=== PATIENT | male | born 1955 | race African-American/Black ===

== ENCOUNTER 2020-08-01 15:22 | Inpatient (IN) | payer MEDICAID ==
[~2020-08-01] VITALS: Ht 182.9 cm; Wt 78.5 kg
[2020-08-01] MEDS ORDERED: ACETAMINOPHEN 325MG TABLET PO ONE (16:15)
[2020-08-01 16:31] LABS: BASOPHILS % 1.1 % (0.0-2.0); EOSINOPHILS % 0.2 % (0.0-5.0); HEMATOCRIT. 26.5 % (42.0-52.0); HEMOGLOBIN. 8.7 g/dL (14.0-18.0); LYMPHOCYTES % 10.9 % (20.0-50.0); MEAN CORPUSCULAR VOLUME 88.7 fL (80.0-94.0); MEAN PLATELET VOLUME 7.9 fl (7.4-10.4); MONOCYTES % 9.4 % (2.0-8.0); NEUTROPHILS % 78.4 % (40.0-76.0); PLATELET 537 x1000/uL (130-400); RED BLOOD CELL COUNT 2.99 mill/uL (4.7-6.1); RED CELL DISTRIBUTION WIDTH 18.5 % (11.6-14.6)
[2020-08-01 16:38] LABS: CHLORIDE 99 mEq/L (98-107)
[2020-08-01] MEDS ORDERED: INSULIN REGULAR (HUMULIN R) 300UNITS/3ML VIAL SUBCUT ONE (17:15)
[2020-08-01] MEDS ORDERED: GUAIFENESIN 200MG/10ML SUGAR FREE UDC PO PRN (20:00)
[2020-08-01] MEDS ORDERED: DEXTROSE 50% WATER 50ML SYRINGE IV PRN (20:00)
[2020-08-01] MEDS ORDERED: ONDANSETRON HCL 4MG/2ML INJ IV PRN (20:00)
[2020-08-01] MEDS ORDERED: DOCUSATE SODIUM 100MG CAPSULE PO PRN (20:00)
[2020-08-01] MEDS ORDERED: DIPHENHYDRAMINE 50MG/ML VIAL IV PRN (20:00)
[2020-08-01] MEDS ORDERED: MAGNESIUM/ALUMINUM HYDROXIDE/SIMETHICONE 30ML UDC PO PRN (20:00)
[2020-08-01] MEDS ORDERED: IPRATROPIUM/ALBUTEROL 0.5-3(2.5)MG/3ML NEB NEB PRN (20:00)
[2020-08-01] MEDS ORDERED: NITROGLYCERIN 0.4MG TABLET SL SL PRN (20:00)
[2020-08-01] MEDS ORDERED: ACETAMINOPHEN 325MG TABLET PO PRN ×2 (20:00)
[2020-08-01 20:57] LABS: VITAMIN B12 SERUM 1261 pg/mL (211-911)
[2020-08-01 20:58] LABS: FOLIC ACID (FOLATE) SERUM > 20.00 ng/mL (>5.38)
[2020-08-01] MEDS: BLOOD SUGAR DIAGNOSTIC STRIP TEST SCH (21:00)
[2020-08-01] MEDS ORDERED: AZITHROMYCIN 500 MG in DEXT 5% WATER 250 ML IV SCH (21:00)
[2020-08-01] MEDS ORDERED: ZOLPIDEM TARTRATE 5MG TABLET PO PRN (21:00)
[2020-08-01] MEDS ORDERED: CEFTRIAXONE 1 G PREMIX 50 ML IV SCH (21:00)
[2020-08-01] MEDS: FAMOTIDINE 20MG TABLET PO SCH (21:59)
[2020-08-01] MEDS: INSULIN LISPRO 100 UNITS/ML SUBCUT SCH (21:59)
[2020-08-01] MEDS: ENOXAPARIN 30MG/0.3ML SYR SUBCUT SCH (21:59)
[2020-08-01] MEDS: GUAIFENESIN/DM 600MG/30MG ER TAB 12HR PO SCH (21:59)
[2020-08-01] MEDS: ASCORBIC ACID 500 MG TABLET PO SCH (21:59)
[2020-08-01] MEDS ORDERED: INSULIN GLARGINE UD 100 UNITS/ML SYR SUBCUT SCH (22:00)
[2020-08-01 23:17] LABS: CREATINE KINASE 46 IU/L (39-308)
[2020-08-01 23:18] LABS: CREATINE KINASE MB FRACTION 2.5 ng/mL (0.5-3.6)
[2020-08-02 03:30] VITALS: BP 143/74
[2020-08-02 05:07] VITALS: BP 100/99
[2020-08-02] MEDS: BLOOD SUGAR DIAGNOSTIC STRIP TEST SCH ×4 (07:17→21:00)
[2020-08-02 08:00] VITALS: BP 179/93
[2020-08-02] MEDS: INSULIN LISPRO 100 UNITS/ML SUBCUT SCH ×4 (08:10→22:21)
[2020-08-02 09:56] LABS: CHLORIDE 105 mEq/L (98-107)
[2020-08-02 10:03] LABS: PHOSPHORUS 3.5 mg/dL (2.5-4.9)
[2020-08-02 10:05] LABS: CREATINE KINASE 36 IU/L (39-308); CREATINE KINASE MB FRACTION 1.9 ng/mL (0.5-3.6)
[2020-08-02] MEDS: ASCORBIC ACID 500 MG TABLET PO SCH ×3 (10:13→22:20)
[2020-08-02] MEDS: ZINC SULFATE 220 MG ( 50 ) CAPSULE PO SCH (10:13)
[2020-08-02] MEDS: GUAIFENESIN/DM 600MG/30MG ER TAB 12HR PO SCH ×3 (10:13→22:20)
[2020-08-02 11:42] LABS: BASOPHILS % 1.7 % (0.0-2.0); EOSINOPHILS % 0.4 % (0.0-5.0); HEMATOCRIT. 25.2 % (42.0-52.0); HEMOGLOBIN. 8.6 g/dL (14.0-18.0); LYMPHOCYTES % 16.7 % (20.0-50.0); MEAN CORPUSCULAR HEMOGLOBIN 29.6 pg (28.0-32.0); MEAN PLATELET VOLUME 8.2 fl (7.4-10.4); MONOCYTES % 7.4 % (2.0-8.0); NEUTROPHILS % 73.8 % (40.0-76.0); PLATELET 507 x1000/uL (130-400); RED CELL DISTRIBUTION WIDTH 18.6 % (11.6-14.6)
[2020-08-02 12:00] VITALS: BP 128/75
[2020-08-02 15:50] LABS: CLARITY URINE CLEAR (CLEAR); COLOR URINE YELLOW (YELLOW); KETONES URINE NEGATIVE (NEGATIVE); LEUKOCYTE ESTERASE URINE NEGATIVE (NEGATIVE); NITRITE URINE NEGATIVE (NEGATIVE); OCCULT BLOOD URINE 2+ (NEGATIVE); PROTEIN URINE 3+ (NEGATIVE); SPECIFIC GRAVITY URINE 1.015 (1.005-1.030); UROBILINOGEN URINE 0.2 E.U./dL (0.2-1.0)
[2020-08-02] MEDS ORDERED: INFLUENZA VACCINE 05/PF 0.5 ML VIAL IM ONE (16:15)
[2020-08-02] MEDS ORDERED: PNEUMOCOCCAL 23-VAL P-SAC VAC 0.5 ML IM ONE (16:30)
[2020-08-02] MEDS: CHOLECALCIFEROL (D3) 1000 UNIT TABLET PO SCH (18:03)
[2020-08-02] MEDS: SEVELAMER CARBONATE 800 MG TABLET PO SCH ×2 (18:03→18:06)
[2020-08-02 19:37] LABS: *AMPHETAMINES SCREEN URINE NEGATIVE (NEGATIVE); *BARBITURATES SCREEN URINE NEGATIVE (NEGATIVE); *BENZODIAZEPINES SCREEN URINE NEGATIVE (NEGATIVE); *COCAINE SCREEN URINE NEGATIVE (NEGATIVE); METHADONE URINE SCREEN NEGATIVE (NEGATIVE); OPIATES URINE SCREEN NEGATIVE (NEGATIVE); PHENCYCLIDINE URINE SCREEN NEGATIVE (NEGATIVE)
[2020-08-02 19:38] LABS: CANNABINOID URINE SCREEN NEGATIVE (NEGATIVE)
[2020-08-02 20:00] VITALS: BP 150/76
[2020-08-02] MEDS: CEFTRIAXONE 1,000 MG in DEXTROSE 5% WATER 50 ML IV SCH (20:07)
[2020-08-02] MEDS: AZITHROMYCIN 500 MG in DEXT 5% WATER 250 ML IV SCH (21:27)
[2020-08-02] MEDS: FAMOTIDINE 20MG TABLET PO SCH ×2 (21:27→22:19)
[2020-08-02] MEDS: ENOXAPARIN 30MG/0.3ML SYR SUBCUT SCH (22:19)
[2020-08-02] MEDS: EPOETIN ALFA 10000UNITS/ML VIAL SUBCUT SCH (22:20)
[2020-08-02] MEDS: INSULIN GLARGINE UD 100 UNITS/ML SYR SUBCUT SCH (22:22)
[2020-08-03] VITALS: BP 131/62
[2020-08-03 04:00] VITALS: BP 172/83
[2020-08-03] MEDS: CLONIDINE 0.1MG TABLET PO PRN (04:35)
[2020-08-03] MEDS: BLOOD SUGAR DIAGNOSTIC STRIP TEST SCH ×4 (06:36→21:53)
[2020-08-03 06:59] LABS: BASOPHILS % 1.2 % (0.0-2.0); EOSINOPHILS % 0.7 % (0.0-5.0); HEMATOCRIT. 27.2 % (42.0-52.0); LYMPHOCYTES % 13.7 % (20.0-50.0); MEAN CORPUSCULAR HEMOGLOBIN 29.6 pg (28.0-32.0); MEAN CORPUSCULAR VOLUME 89.3 fL (80.0-94.0); MEAN PLATELET VOLUME 7.8 fl (7.4-10.4); MONOCYTES % 9.5 % (2.0-8.0); NEUTROPHILS % 74.9 % (40.0-76.0); PLATELET 539 x1000/uL (130-400); RED BLOOD CELL COUNT 3.05 mill/uL (4.7-6.1); RED CELL DISTRIBUTION WIDTH 19.1 % (11.6-14.6)
[2020-08-03 07:32] LABS: HEPATITIS B SURFACE AB < 3.1 mIU/mL
[2020-08-03 07:34] LABS: PHOSPHORUS 3.5 mg/dL (2.5-4.9)
[2020-08-03 07:42] LABS: HEPATITIS B SURFACE ANTIGEN NEGATIVE
[2020-08-03] MEDS: INSULIN LISPRO 100 UNITS/ML SUBCUT SCH ×4 (07:51→21:52)
[2020-08-03] MEDS: SEVELAMER CARBONATE 800 MG TABLET PO SCH ×3 (08:53→18:04)
[2020-08-03] MEDS: CHOLECALCIFEROL (D3) 1000 UNIT TABLET PO SCH (08:53)
[2020-08-03] MEDS: ZINC SULFATE 220 MG ( 50 ) CAPSULE PO SCH (08:54)
[2020-08-03 12:00] VITALS: BP 159/81
[2020-08-03] MEDS: MAGNESIUM OXIDE 400MG TABLET PO SCH ×2 (13:40→21:51)
[2020-08-03 20:00] VITALS: BP 157/92
[2020-08-03] MEDS: CEFTRIAXONE 1,000 MG in DEXTROSE 5% WATER 50 ML IV SCH (20:03)
[2020-08-03] MEDS: AZITHROMYCIN 500 MG in DEXT 5% WATER 250 ML IV SCH (21:49)
[2020-08-03] MEDS: ASCORBIC ACID 500 MG TABLET PO SCH (21:50)
[2020-08-03] MEDS: ENOXAPARIN 30MG/0.3ML SYR SUBCUT SCH (21:50)
[2020-08-03] MEDS: GUAIFENESIN/DM 600MG/30MG ER TAB 12HR PO SCH (21:51)
[2020-08-03] MEDS: INSULIN GLARGINE UD 100 UNITS/ML SYR SUBCUT SCH (21:53)
[2020-08-04] VITALS: BP 140/84
[2020-08-04 04:00] VITALS: BP 134/77
[2020-08-04] MEDS: BLOOD SUGAR DIAGNOSTIC STRIP TEST SCH ×4 (06:23→21:00)
[2020-08-04 06:51] LABS: BASOPHILS % 1.2 % (0.0-2.0); EOSINOPHILS % 0.3 % (0.0-5.0); HEMATOCRIT. 28.1 % (42.0-52.0); HEMOGLOBIN. 9.6 g/dL (14.0-18.0); LYMPHOCYTES % 17.4 % (20.0-50.0); MEAN CORPUSCULAR HEMOGLOBIN 29.6 pg (28.0-32.0); MEAN CORPUSCULAR VOLUME 86.7 fL (80.0-94.0); MEAN PLATELET VOLUME 7.9 fl (7.4-10.4); MONOCYTES % 9.9 % (2.0-8.0); NEUTROPHILS % 71.2 % (40.0-76.0); PLATELET 479 x1000/uL (130-400); RED BLOOD CELL COUNT 3.24 mill/uL (4.7-6.1); RED CELL DISTRIBUTION WIDTH 18.2 % (11.6-14.6)
[2020-08-04] MEDS: INSULIN LISPRO 100 UNITS/ML SUBCUT SCH ×4 (07:42→21:48)
[2020-08-04 08:00] VITALS: BP_SYST 143; BP_SYST 158; BP_DIAS 65; BP_DIAS 83
[2020-08-04] MEDS: SEVELAMER CARBONATE 800 MG TABLET PO SCH ×3 (09:31→18:04)
[2020-08-04] MEDS: MAGNESIUM OXIDE 400MG TABLET PO SCH ×2 (09:31→21:43)
[2020-08-04] MEDS: ZINC SULFATE 220 MG ( 50 ) CAPSULE PO SCH (09:31)
[2020-08-04] MEDS: GUAIFENESIN/DM 600MG/30MG ER TAB 12HR PO SCH ×2 (09:31→21:43)
[2020-08-04] MEDS: CHOLECALCIFEROL (D3) 1000 UNIT TABLET PO SCH (09:31)
[2020-08-04] MEDS: ASCORBIC ACID 500 MG TABLET PO SCH ×2 (09:31→21:43)
[2020-08-04 12:00] VITALS: BP 145/82
[2020-08-04 16:00] VITALS: BP 156/82
[2020-08-04 18:26] LABS: PHOSPHORUS 3.1 mg/dL (2.5-4.9)
[2020-08-04 20:00] VITALS: BP 171/77
[2020-08-04] MEDS: FAMOTIDINE 20MG TABLET PO SCH (21:43)
[2020-08-04] MEDS: ENOXAPARIN 30MG/0.3ML SYR SUBCUT SCH (21:45)
[2020-08-04] MEDS: INSULIN GLARGINE UD 100 UNITS/ML SYR SUBCUT SCH (21:46)
[2020-08-04] MEDS: EPOETIN ALFA 10000UNITS/ML VIAL SUBCUT SCH (21:47)
[2020-08-04] MEDS: CEFTRIAXONE 1,000 MG in DEXTROSE 5% WATER 50 ML IV SCH (21:51)
[2020-08-04] MEDS: AZITHROMYCIN 500 MG in DEXT 5% WATER 250 ML IV SCH (22:48)
[2020-08-05] VITALS: BP 154/83
[2020-08-05 04:00] VITALS: BP 154/82
[2020-08-05] MEDS: BLOOD SUGAR DIAGNOSTIC STRIP TEST SCH ×4 (06:19→21:00)
[2020-08-05] MEDS: INSULIN LISPRO 100 UNITS/ML SUBCUT SCH ×4 (06:23→21:13)
[2020-08-05 08:00] VITALS: BP 157/79
[2020-08-05 08:10] LABS: BASOPHILS % 1.1 % (0.0-2.0); EOSINOPHILS % 0.5 % (0.0-5.0); HEMATOCRIT. 28.4 % (42.0-52.0); HEMOGLOBIN. 9.5 g/dL (14.0-18.0); LYMPHOCYTES % 20.5 % (20.0-50.0); MEAN CORPUSCULAR HEMOGLOBIN 28.9 pg (28.0-32.0); MEAN CORPUSCULAR VOLUME 86.6 fL (80.0-94.0); MEAN PLATELET VOLUME 8.3 fl (7.4-10.4); MONOCYTES % 10.7 % (2.0-8.0); NEUTROPHILS % 67.2 % (40.0-76.0); PLATELET 458 x1000/uL (130-400); RED BLOOD CELL COUNT 3.28 mill/uL (4.7-6.1); RED CELL DISTRIBUTION WIDTH 18.1 % (11.6-14.6)
[2020-08-05] MEDS: MAGNESIUM OXIDE 400MG TABLET PO SCH ×2 (08:30→21:23)
[2020-08-05] MEDS: SEVELAMER CARBONATE 800 MG TABLET PO SCH ×3 (08:30→17:24)
[2020-08-05] MEDS: ASCORBIC ACID 500 MG TABLET PO SCH ×2 (08:30→21:10)
[2020-08-05] MEDS: GUAIFENESIN/DM 600MG/30MG ER TAB 12HR PO SCH ×2 (08:30→21:10)
[2020-08-05] MEDS: ZINC SULFATE 220 MG ( 50 ) CAPSULE PO SCH (08:30)
[2020-08-05] MEDS: CHOLECALCIFEROL (D3) 1000 UNIT TABLET PO SCH (08:30)
[2020-08-05 09:17] LABS: PHOSPHORUS 3.4 mg/dL (2.5-4.9)
[2020-08-05 12:00] VITALS: BP 150/84
[2020-08-05 16:00] VITALS: BP 139/79
[2020-08-05] MEDS ORDERED: TUBERCULIN,PURIF.PROT.DERIV. 5 TU/0.1 ML SYR ID ONE (18:00)
[2020-08-05 20:00] VITALS: BP 155/78
[2020-08-05] MEDS: FAMOTIDINE 20MG TABLET PO SCH (21:10)
[2020-08-05] MEDS: INSULIN GLARGINE UD 100 UNITS/ML SYR SUBCUT SCH (21:14)
[2020-08-05] MEDS: CEFTRIAXONE 1,000 MG in DEXTROSE 5% WATER 50 ML IV SCH (21:16)
[2020-08-05] MEDS: AZITHROMYCIN 500 MG in DEXT 5% WATER 250 ML IV SCH (22:31)
[2020-08-05] MEDS: ENOXAPARIN 30MG/0.3ML SYR SUBCUT SCH (22:49)
[2020-08-06] VITALS: BP 147/76
[2020-08-06 04:00] VITALS: BP 140/79
[2020-08-06] MEDS: BLOOD SUGAR DIAGNOSTIC STRIP TEST SCH ×4 (06:45→21:00)
[2020-08-06] MEDS: INSULIN LISPRO 100 UNITS/ML SUBCUT SCH ×4 (07:15→22:05)
[2020-08-06 08:00] VITALS: BP 142/82
[2020-08-06 08:33] LABS: EOSINOPHILS % 0.7 % (0.0-5.0); HEMATOCRIT. 30.5 % (42.0-52.0); HEMOGLOBIN. 10.3 g/dL (14.0-18.0); LYMPHOCYTES % 16.6 % (20.0-50.0); MEAN CORPUSCULAR HEMOGLOBIN 29.1 pg (28.0-32.0); MEAN CORPUSCULAR VOLUME 86.5 fL (80.0-94.0); MEAN PLATELET VOLUME 8.2 fl (7.4-10.4); MONOCYTES % 10.1 % (2.0-8.0); NEUTROPHILS % 71.6 % (40.0-76.0); PLATELET 432 x1000/uL (130-400); RED BLOOD CELL COUNT 3.53 mill/uL (4.7-6.1); RED CELL DISTRIBUTION WIDTH 17.7 % (11.6-14.6)
[2020-08-06 08:58] LABS: PHOSPHORUS 2.5 mg/dL (2.5-4.9)
[2020-08-06] MEDS: SEVELAMER CARBONATE 800 MG TABLET PO SCH ×3 (10:03→18:28)
[2020-08-06] MEDS: ASCORBIC ACID 500 MG TABLET PO SCH ×2 (10:03→21:19)
[2020-08-06] MEDS: MAGNESIUM OXIDE 400MG TABLET PO SCH ×2 (10:03→21:19)
[2020-08-06] MEDS: CHOLECALCIFEROL (D3) 1000 UNIT TABLET PO SCH (10:03)
[2020-08-06] MEDS: ZINC SULFATE 220 MG ( 50 ) CAPSULE PO SCH (10:03)
[2020-08-06] MEDS: GUAIFENESIN/DM 600MG/30MG ER TAB 12HR PO SCH ×2 (10:03→21:21)
[2020-08-06 20:00] VITALS: BP 154/87
[2020-08-06] MEDS: FAMOTIDINE 20MG TABLET PO SCH (21:19)
[2020-08-06] MEDS: INSULIN GLARGINE UD 100 UNITS/ML SYR SUBCUT SCH (22:05)
[2020-08-07] VITALS: BP 139/76
[2020-08-07 04:00] VITALS: BP 136/78
[2020-08-07] MEDS: BLOOD SUGAR DIAGNOSTIC STRIP TEST SCH ×4 (06:21→20:31)
[2020-08-07] MEDS: INSULIN LISPRO 100 UNITS/ML SUBCUT SCH ×4 (06:21→20:28)
[2020-08-07] MEDS: SEVELAMER CARBONATE 800 MG TABLET PO SCH ×3 (06:31→16:46)
[2020-08-07 07:21] LABS: BASOPHILS % 1.2 % (0.0-2.0); EOSINOPHILS % 0.4 % (0.0-5.0); HEMATOCRIT. 28.7 % (42.0-52.0); HEMOGLOBIN. 9.6 g/dL (14.0-18.0); MEAN CORPUSCULAR HEMOGLOBIN 28.8 pg (28.0-32.0); MEAN CORPUSCULAR VOLUME 86.5 fL (80.0-94.0); MEAN PLATELET VOLUME 8.2 fl (7.4-10.4); MONOCYTES % 8.4 % (2.0-8.0); PLATELET 436 x1000/uL (130-400); RED BLOOD CELL COUNT 3.32 mill/uL (4.7-6.1); RED CELL DISTRIBUTION WIDTH 17.6 % (11.6-14.6)
[2020-08-07 07:31] LABS: PHOSPHORUS 3.2 mg/dL (2.5-4.9)
[2020-08-07 08:00] VITALS: BP 169/82
[2020-08-07] MEDS: ZINC SULFATE 220 MG ( 50 ) CAPSULE PO SCH (08:06)
[2020-08-07] MEDS: CHOLECALCIFEROL (D3) 1000 UNIT TABLET PO SCH (08:06)
[2020-08-07] MEDS: ASCORBIC ACID 500 MG TABLET PO SCH ×2 (08:06→20:26)
[2020-08-07] MEDS: MAGNESIUM OXIDE 400MG TABLET PO SCH ×2 (08:06→20:26)
[2020-08-07] MEDS: GUAIFENESIN/DM 600MG/30MG ER TAB 12HR PO SCH ×2 (08:08→20:31)
[2020-08-07 12:00] VITALS: BP 174/85
[2020-08-07] MEDS: CLONIDINE 0.1MG TABLET PO PRN (12:33)
[2020-08-07 16:00] VITALS: BP 170/80
[2020-08-07] MEDS: AMLODIPINE 10MG TABLET PO SCH (16:46)
[2020-08-07] MEDS: FAMOTIDINE 20MG TABLET PO SCH (20:26)
[2020-08-07] MEDS: ENOXAPARIN 30MG/0.3ML SYR SUBCUT SCH (22:52)
[2020-08-07] MEDS: INSULIN GLARGINE UD 100 UNITS/ML SYR SUBCUT SCH (22:53)
[2020-08-08] VITALS: BP 160/76
[2020-08-08 04:00] VITALS: BP 137/79
[2020-08-08] MEDS: BLOOD SUGAR DIAGNOSTIC STRIP TEST SCH ×4 (05:47→21:00)
[2020-08-08] MEDS: SEVELAMER CARBONATE 800 MG TABLET PO SCH ×3 (05:47→17:47)
[2020-08-08] MEDS: INSULIN LISPRO 100 UNITS/ML SUBCUT SCH ×4 (06:46→21:06)
[2020-08-08 07:53] LABS: EOSINOPHILS % 2.6 % (0.0-5.0); HEMATOCRIT. 29.7 % (42.0-52.0); HEMOGLOBIN. 9.7 g/dL (14.0-18.0); LYMPHOCYTES % 32.8 % (20.0-50.0); MEAN CORPUSCULAR HEMOGLOBIN 28.4 pg (28.0-32.0); MEAN CORPUSCULAR VOLUME 87.1 fL (80.0-94.0); MEAN PLATELET VOLUME 7.7 fl (7.4-10.4); MONOCYTES % 9.8 % (2.0-8.0); NEUTROPHILS % 53.8 % (40.0-76.0); PLATELET 456 x1000/uL (130-400); RED BLOOD CELL COUNT 3.41 mill/uL (4.7-6.1); RED CELL DISTRIBUTION WIDTH 17.4 % (11.6-14.6)
[2020-08-08 08:00] VITALS: BP 153/79
[2020-08-08 08:27] LABS: PHOSPHORUS 3.7 mg/dL (2.5-4.9)
[2020-08-08] MEDS: MAGNESIUM OXIDE 400MG TABLET PO SCH ×2 (09:35→21:04)
[2020-08-08] MEDS: AMLODIPINE 10MG TABLET PO SCH (09:35)
[2020-08-08] MEDS: ZINC SULFATE 220 MG ( 50 ) CAPSULE PO SCH (09:35)
[2020-08-08] MEDS: ASCORBIC ACID 500 MG TABLET PO SCH ×2 (09:35→21:04)
[2020-08-08] MEDS: GUAIFENESIN/DM 600MG/30MG ER TAB 12HR PO SCH ×2 (09:35→21:04)
[2020-08-08] MEDS: CHOLECALCIFEROL (D3) 1000 UNIT TABLET PO SCH (09:35)
[2020-08-08 16:00] VITALS: BP 136/79
[2020-08-08 20:00] VITALS: BP 149/77
[2020-08-08] MEDS: FAMOTIDINE 20MG TABLET PO SCH (21:04)
[2020-08-08] MEDS: INSULIN GLARGINE UD 100 UNITS/ML SYR SUBCUT SCH (21:05)
[2020-08-08] MEDS: ENOXAPARIN 30MG/0.3ML SYR SUBCUT SCH (21:05)
[2020-08-09] VITALS: BP 131/72
[2020-08-09 04:00] VITALS: BP 122/70
[2020-08-09] MEDS: BLOOD SUGAR DIAGNOSTIC STRIP TEST SCH ×4 (06:32→21:00)
[2020-08-09] MEDS: INSULIN LISPRO 100 UNITS/ML SUBCUT SCH ×4 (06:33→21:00)
[2020-08-09 06:48] LABS: HEMATOCRIT. 29.4 % (42.0-52.0); HEMOGLOBIN. 9.8 g/dL (14.0-18.0); MEAN CORPUSCULAR HEMOGLOBIN 28.7 pg (28.0-32.0); MEAN CORPUSCULAR VOLUME 85.8 fL (80.0-94.0); MEAN PLATELET VOLUME 7.7 fl (7.4-10.4); PLATELET 460 x1000/uL (130-400); RED BLOOD CELL COUNT 3.42 mill/uL (4.7-6.1); RED CELL DISTRIBUTION WIDTH 17.7 % (11.6-14.6)
[2020-08-09 08:00] VITALS: BP 121/87
[2020-08-09 09:09] LABS: PHOSPHORUS 3.6 mg/dL (2.5-4.9)
[2020-08-09 12:00] VITALS: BP 128/82
[2020-08-09] MEDS: SEVELAMER CARBONATE 800 MG TABLET PO SCH ×3 (12:15→17:15)
[2020-08-09] MEDS: ZINC SULFATE 220 MG ( 50 ) CAPSULE PO SCH (12:15)
[2020-08-09] MEDS: ASCORBIC ACID 500 MG TABLET PO SCH ×2 (12:16→21:36)
[2020-08-09] MEDS: GUAIFENESIN/DM 600MG/30MG ER TAB 12HR PO SCH ×2 (12:16→21:36)
[2020-08-09] MEDS: AMLODIPINE 10MG TABLET PO SCH (12:16)
[2020-08-09] MEDS: MAGNESIUM OXIDE 400MG TABLET PO SCH ×2 (12:16→21:36)
[2020-08-09] MEDS: CHOLECALCIFEROL (D3) 1000 UNIT TABLET PO SCH (12:17)
[2020-08-09 16:00] VITALS: BP 154/84
[2020-08-09 17:23] LABS: PLATELET ESTIMATE INCREASED
[2020-08-09 20:00] VITALS: BP 135/70
[2020-08-09] MEDS: ENOXAPARIN 30MG/0.3ML SYR SUBCUT SCH (21:36)
[2020-08-09] MEDS: FAMOTIDINE 20MG TABLET PO SCH (21:36)
[2020-08-09] MEDS: INSULIN GLARGINE UD 100 UNITS/ML SYR SUBCUT SCH (21:39)
[2020-08-10] VITALS: BP 122/70
[2020-08-10 04:00] VITALS: BP 142/78
[2020-08-10] MEDS: INSULIN LISPRO 100 UNITS/ML SUBCUT SCH ×5 (06:44→22:02)
[2020-08-10] MEDS: BLOOD SUGAR DIAGNOSTIC STRIP TEST SCH ×4 (06:44→21:51)
[2020-08-10 08:00] VITALS: BP 162/82
[2020-08-10] MEDS: ASCORBIC ACID 500 MG TABLET PO SCH ×2 (09:11→21:52)
[2020-08-10] MEDS: MAGNESIUM OXIDE 400MG TABLET PO SCH ×2 (09:11→21:51)
[2020-08-10] MEDS: ZINC SULFATE 220 MG ( 50 ) CAPSULE PO SCH (09:11)
[2020-08-10] MEDS: GUAIFENESIN/DM 600MG/30MG ER TAB 12HR PO SCH ×2 (09:11→21:52)
[2020-08-10] MEDS: CHOLECALCIFEROL (D3) 1000 UNIT TABLET PO SCH (09:11)
[2020-08-10] MEDS: SEVELAMER CARBONATE 800 MG TABLET PO SCH ×4 (09:11→17:21)
[2020-08-10] MEDS: AMLODIPINE 10MG TABLET PO SCH (10:01)
[2020-08-10 12:00] VITALS: BP 159/88
[2020-08-10 16:00] VITALS: BP 164/84
[2020-08-10] MEDS: CLONIDINE 0.1MG TABLET PO PRN (17:22)
[2020-08-10 20:00] VITALS: BP 141/76
[2020-08-10] MEDS: ENOXAPARIN 30MG/0.3ML SYR SUBCUT SCH (21:51)
[2020-08-10] MEDS: FAMOTIDINE 20MG TABLET PO SCH (21:52)
[2020-08-10] MEDS: INSULIN GLARGINE UD 100 UNITS/ML SYR SUBCUT SCH (22:06)
[2020-08-11] VITALS: BP 147/73
[2020-08-11 04:00] VITALS: BP 142/74
[2020-08-11 07:16] LABS: HEMATOCRIT. 29.2 % (42.0-52.0); HEMOGLOBIN. 9.7 g/dL (14.0-18.0); MEAN CORPUSCULAR HEMOGLOBIN 28.8 pg (28.0-32.0); MEAN CORPUSCULAR VOLUME 87.1 fL (80.0-94.0); MEAN PLATELET VOLUME 7.5 fl (7.4-10.4); PLATELET 416 x1000/uL (130-400); RED BLOOD CELL COUNT 3.35 mill/uL (4.7-6.1); RED CELL DISTRIBUTION WIDTH 17.7 % (11.6-14.6)
[2020-08-11] MEDS: INSULIN LISPRO 100 UNITS/ML SUBCUT SCH ×4 (07:50→21:00)
[2020-08-11] MEDS: BLOOD SUGAR DIAGNOSTIC STRIP TEST SCH ×4 (07:59→21:37)
[2020-08-11 08:00] VITALS: BP 159/78
[2020-08-11 08:15] LABS: PHOSPHORUS 3.8 mg/dL (2.5-4.9)
[2020-08-11] MEDS: SEVELAMER CARBONATE 800 MG TABLET PO SCH ×3 (08:46→18:12)
[2020-08-11] MEDS: GUAIFENESIN/DM 600MG/30MG ER TAB 12HR PO SCH ×2 (08:47→21:39)
[2020-08-11] MEDS: ASCORBIC ACID 500 MG TABLET PO SCH ×2 (08:47→21:39)
[2020-08-11] MEDS: ZINC SULFATE 220 MG ( 50 ) CAPSULE PO SCH (08:47)
[2020-08-11] MEDS: MAGNESIUM OXIDE 400MG TABLET PO SCH ×2 (08:47→21:39)
[2020-08-11] MEDS: CHOLECALCIFEROL (D3) 1000 UNIT TABLET PO SCH (08:47)
[2020-08-11] MEDS: AMLODIPINE 10MG TABLET PO SCH (08:47)
[2020-08-11 12:00] VITALS: BP 141/78
[2020-08-11 16:00] VITALS: BP 157/80
[2020-08-11 19:31] LABS: PLATELET ESTIMATE INCREASED
[2020-08-11 20:00] VITALS: BP 147/81
[2020-08-11] MEDS: FAMOTIDINE 20MG TABLET PO SCH (21:39)
[2020-08-11] MEDS: ENOXAPARIN 30MG/0.3ML SYR SUBCUT SCH (21:39)
[2020-08-11] MEDS: INSULIN GLARGINE UD 100 UNITS/ML SYR SUBCUT SCH (21:40)
[2020-08-12] VITALS: BP 162/82
[2020-08-12 04:00] VITALS: BP 132/77
[2020-08-12] MEDS: BLOOD SUGAR DIAGNOSTIC STRIP TEST SCH ×4 (07:33→20:22)
[2020-08-12] MEDS: INSULIN LISPRO 100 UNITS/ML SUBCUT SCH ×4 (07:48→21:00)
[2020-08-12 08:00] VITALS: BP 131/75
[2020-08-12] MEDS: ZINC SULFATE 220 MG ( 50 ) CAPSULE PO SCH (09:53)
[2020-08-12] MEDS: ASCORBIC ACID 500 MG TABLET PO SCH ×2 (09:53→20:22)
[2020-08-12] MEDS: AMLODIPINE 10MG TABLET PO SCH (09:53)
[2020-08-12] MEDS: GUAIFENESIN/DM 600MG/30MG ER TAB 12HR PO SCH ×2 (09:53→20:22)
[2020-08-12] MEDS: MAGNESIUM OXIDE 400MG TABLET PO SCH ×2 (09:53→20:22)
[2020-08-12] MEDS: SEVELAMER CARBONATE 800 MG TABLET PO SCH ×3 (09:53→17:30)
[2020-08-12] MEDS: CHOLECALCIFEROL (D3) 1000 UNIT TABLET PO SCH (09:53)
[2020-08-12 12:00] VITALS: BP 113/81
[2020-08-12] MEDS ORDERED: TUBERCULIN,PURIF.PROT.DERIV. 5 TU/0.1 ML SYR ID ONE (13:00)
[2020-08-12 20:00] VITALS: BP 152/80
[2020-08-12] MEDS: FAMOTIDINE 20MG TABLET PO SCH (20:22)
[2020-08-12] MEDS: ENOXAPARIN 30MG/0.3ML SYR SUBCUT SCH (20:22)
[2020-08-12] MEDS: INSULIN GLARGINE UD 100 UNITS/ML SYR SUBCUT SCH (21:31)
[2020-08-13] VITALS: BP 138/78
[2020-08-13 04:00] VITALS: BP 148/82
[2020-08-13 07:34] LABS: BASOPHILS % 1.2 % (0.0-2.0); EOSINOPHILS % 3.1 % (0.0-5.0); HEMATOCRIT. 30.1 % (42.0-52.0); HEMOGLOBIN. 9.9 g/dL (14.0-18.0); LYMPHOCYTES % 32.1 % (20.0-50.0); MEAN CORPUSCULAR HEMOGLOBIN 28.8 pg (28.0-32.0); MEAN CORPUSCULAR VOLUME 87.1 fL (80.0-94.0); MEAN PLATELET VOLUME 7.4 fl (7.4-10.4); MONOCYTES % 9.2 % (2.0-8.0); NEUTROPHILS % 54.4 % (40.0-76.0); PLATELET 400 x1000/uL (130-400); RED BLOOD CELL COUNT 3.45 mill/uL (4.7-6.1)
[2020-08-13] MEDS: BLOOD SUGAR DIAGNOSTIC STRIP TEST SCH ×4 (07:41→21:58)
[2020-08-13] MEDS: INSULIN LISPRO 100 UNITS/ML SUBCUT SCH ×4 (07:41→22:00)
[2020-08-13 08:00] VITALS: BP 146/78
[2020-08-13 08:15] LABS: PHOSPHORUS 3.6 mg/dL (2.5-4.9)
[2020-08-13] MEDS: CHOLECALCIFEROL (D3) 1000 UNIT TABLET PO SCH (09:19)
[2020-08-13] MEDS: ASCORBIC ACID 500 MG TABLET PO SCH ×2 (09:19→22:25)
[2020-08-13] MEDS: AMLODIPINE 10MG TABLET PO SCH (09:19)
[2020-08-13] MEDS: MAGNESIUM OXIDE 400MG TABLET PO SCH ×2 (09:19→22:25)
[2020-08-13] MEDS: SEVELAMER CARBONATE 800 MG TABLET PO SCH ×3 (09:19→16:54)
[2020-08-13] MEDS: GUAIFENESIN/DM 600MG/30MG ER TAB 12HR PO SCH ×2 (09:19→22:25)
[2020-08-13] MEDS: ZINC SULFATE 220 MG ( 50 ) CAPSULE PO SCH (09:19)
[2020-08-13 20:00] VITALS: BP 112/85
[2020-08-13] MEDS: ENOXAPARIN 30MG/0.3ML SYR SUBCUT SCH (21:00)
[2020-08-13] MEDS: FAMOTIDINE 20MG TABLET PO SCH (22:24)
[2020-08-13] MEDS: INSULIN GLARGINE UD 100 UNITS/ML SYR SUBCUT SCH (22:25)
[2020-08-14] VITALS: BP 140/81
[2020-08-14 04:00] VITALS: BP 155/72
[2020-08-14] MEDS: BLOOD SUGAR DIAGNOSTIC STRIP TEST SCH ×4 (06:00→21:13)
[2020-08-14] MEDS: INSULIN LISPRO 100 UNITS/ML SUBCUT SCH ×4 (06:13→21:35)
[2020-08-14 08:00] VITALS: BP 118/64
[2020-08-14] MEDS: AMLODIPINE 10MG TABLET PO SCH (09:00)
[2020-08-14] MEDS: ASCORBIC ACID 500 MG TABLET PO SCH ×2 (09:07→21:13)
[2020-08-14] MEDS: MAGNESIUM OXIDE 400MG TABLET PO SCH ×2 (09:08→21:12)
[2020-08-14] MEDS: ZINC SULFATE 220 MG ( 50 ) CAPSULE PO SCH (09:08)
[2020-08-14] MEDS: CHOLECALCIFEROL (D3) 1000 UNIT TABLET PO SCH (09:08)
[2020-08-14] MEDS: SEVELAMER CARBONATE 800 MG TABLET PO SCH ×3 (09:08→18:06)
[2020-08-14] MEDS: GUAIFENESIN/DM 600MG/30MG ER TAB 12HR PO SCH ×2 (09:08→21:12)
[2020-08-14 12:00] VITALS: BP 154/80
[2020-08-14 20:00] VITALS: BP 109/60
[2020-08-14] MEDS: ENOXAPARIN 30MG/0.3ML SYR SUBCUT SCH (21:12)
[2020-08-14] MEDS: FAMOTIDINE 20MG TABLET PO SCH (21:13)
[2020-08-14] MEDS: INSULIN GLARGINE UD 100 UNITS/ML SYR SUBCUT SCH (21:35)
[2020-08-15] VITALS: BP 118/59
[2020-08-15 04:00] VITALS: BP 113/51
[2020-08-15] MEDS: BLOOD SUGAR DIAGNOSTIC STRIP TEST SCH ×4 (06:22→21:34)
[2020-08-15] MEDS: INSULIN LISPRO 100 UNITS/ML SUBCUT SCH ×4 (07:50→21:38)
[2020-08-15 08:00] VITALS: BP 136/73
[2020-08-15] MEDS: CHOLECALCIFEROL (D3) 1000 UNIT TABLET PO SCH (09:01)
[2020-08-15] MEDS: GUAIFENESIN/DM 600MG/30MG ER TAB 12HR PO SCH ×2 (09:02→21:17)
[2020-08-15] MEDS: ASCORBIC ACID 500 MG TABLET PO SCH ×2 (09:02→21:17)
[2020-08-15] MEDS: MAGNESIUM OXIDE 400MG TABLET PO SCH ×2 (09:02→21:17)
[2020-08-15] MEDS: AMLODIPINE 10MG TABLET PO SCH (09:02)
[2020-08-15] MEDS: ZINC SULFATE 220 MG ( 50 ) CAPSULE PO SCH (09:02)
[2020-08-15] MEDS: SEVELAMER CARBONATE 800 MG TABLET PO SCH ×3 (09:02→18:16)
[2020-08-15 12:00] VITALS: BP 144/83
[2020-08-15 16:00] VITALS: BP 131/77
[2020-08-15 20:00] VITALS: BP 126/81
[2020-08-15] MEDS: FAMOTIDINE 20MG TABLET PO SCH (21:17)
[2020-08-15] MEDS: ENOXAPARIN 30MG/0.3ML SYR SUBCUT SCH (21:18)
[2020-08-15] MEDS: INSULIN GLARGINE UD 100 UNITS/ML SYR SUBCUT SCH (21:37)
[2020-08-16] VITALS: BP 138/84
[2020-08-16 04:46] VITALS: BP 149/83
[2020-08-16] MEDS: BLOOD SUGAR DIAGNOSTIC STRIP TEST SCH ×4 (07:20→21:24)
[2020-08-16 07:52] LABS: BASOPHILS % 1.4 % (0.0-2.0); EOSINOPHILS % 3.4 % (0.0-5.0); HEMATOCRIT. 31.7 % (42.0-52.0); HEMOGLOBIN. 10.5 g/dL (14.0-18.0); LYMPHOCYTES % 27.3 % (20.0-50.0); MEAN CORPUSCULAR HEMOGLOBIN 28.8 pg (28.0-32.0); MEAN CORPUSCULAR VOLUME 86.6 fL (80.0-94.0); MEAN PLATELET VOLUME 7.8 fl (7.4-10.4); MONOCYTES % 9.2 % (2.0-8.0); NEUTROPHILS % 58.7 % (40.0-76.0); PLATELET 368 x1000/uL (130-400); RED BLOOD CELL COUNT 3.65 mill/uL (4.7-6.1); RED CELL DISTRIBUTION WIDTH 17.8 % (11.6-14.6)
[2020-08-16 08:00] VITALS: BP 150/82
[2020-08-16 08:08] LABS: PHOSPHORUS 4.2 mg/dL (2.5-4.9)
[2020-08-16] MEDS: SEVELAMER CARBONATE 800 MG TABLET PO SCH ×3 (08:58→18:10)
[2020-08-16] MEDS: GUAIFENESIN/DM 600MG/30MG ER TAB 12HR PO SCH ×2 (08:59→21:03)
[2020-08-16] MEDS: ASCORBIC ACID 500 MG TABLET PO SCH ×2 (08:59→21:03)
[2020-08-16] MEDS: AMLODIPINE 10MG TABLET PO SCH (08:59)
[2020-08-16] MEDS: CHOLECALCIFEROL (D3) 1000 UNIT TABLET PO SCH (08:59)
[2020-08-16] MEDS: MAGNESIUM OXIDE 400MG TABLET PO SCH ×2 (08:59→21:03)
[2020-08-16] MEDS: ZINC SULFATE 220 MG ( 50 ) CAPSULE PO SCH (08:59)
[2020-08-16] MEDS: INSULIN LISPRO 100 UNITS/ML SUBCUT SCH ×4 (09:08→21:20)
[2020-08-16 12:00] VITALS: BP 142/79
[2020-08-16 16:00] VITALS: BP 150/80
[2020-08-16 20:00] VITALS: BP 144/74
[2020-08-16] MEDS: FAMOTIDINE 20MG TABLET PO SCH (21:03)
[2020-08-16] MEDS: ENOXAPARIN 30MG/0.3ML SYR SUBCUT SCH (21:04)
[2020-08-16] MEDS: INSULIN GLARGINE UD 100 UNITS/ML SYR SUBCUT SCH (21:23)
[2020-08-17] VITALS (7 sets, daily range): BP systolic 130–159; BP diastolic 75–87
[2020-08-17 04:55] LABS: BASOPHILS % 1.1 % (0.0-2.0); EOSINOPHILS % 3.6 % (0.0-5.0); HEMATOCRIT. 30.1 % (42.0-52.0); HEMOGLOBIN. 9.9 g/dL (14.0-18.0); MEAN CORPUSCULAR HEMOGLOBIN 28.4 pg (28.0-32.0); MEAN CORPUSCULAR VOLUME 86.3 fL (80.0-94.0); MEAN PLATELET VOLUME 7.2 fl (7.4-10.4); MONOCYTES % 8.7 % (2.0-8.0); NEUTROPHILS % 56.6 % (40.0-76.0); PLATELET 332 x1000/uL (130-400); RED BLOOD CELL COUNT 3.49 mill/uL (4.7-6.1); RED CELL DISTRIBUTION WIDTH 17.6 % (11.6-14.6)
[2020-08-17 05:10] LABS: PHOSPHORUS 4.2 mg/dL (2.5-4.9)
[2020-08-17] MEDS: BLOOD SUGAR DIAGNOSTIC STRIP TEST SCH ×4 (07:20→21:00)
[2020-08-17] MEDS: INSULIN LISPRO 100 UNITS/ML SUBCUT SCH ×4 (07:50→21:00)
[2020-08-17] MEDS: SEVELAMER CARBONATE 800 MG TABLET PO SCH ×3 (10:51→18:32)
[2020-08-17] MEDS: MAGNESIUM OXIDE 400MG TABLET PO SCH ×2 (10:51→22:15)
[2020-08-17] MEDS: GUAIFENESIN/DM 600MG/30MG ER TAB 12HR PO SCH ×2 (10:52→22:15)
[2020-08-17] MEDS: ASCORBIC ACID 500 MG TABLET PO SCH ×2 (10:53→22:15)
[2020-08-17] MEDS: AMLODIPINE 10MG TABLET PO SCH (10:53)
[2020-08-17] MEDS: ZINC SULFATE 220 MG ( 50 ) CAPSULE PO SCH (10:53)
[2020-08-17] MEDS: CHOLECALCIFEROL (D3) 1000 UNIT TABLET PO SCH (10:54)
[2020-08-17] MEDS: INSULIN GLARGINE UD 100 UNITS/ML SYR SUBCUT SCH (22:00)
[2020-08-17] MEDS: ENOXAPARIN 30MG/0.3ML SYR SUBCUT SCH (22:15)
[2020-08-17] MEDS: FAMOTIDINE 20MG TABLET PO SCH (22:15)
[2020-08-18] VITALS: BP_SYST 134; BP_SYST 157; BP_DIAS 69; BP_DIAS 80
[2020-08-18 04:00] VITALS: BP 134/69
[2020-08-18 06:11] LABS: PHOSPHORUS 3.1 mg/dL (2.5-4.9)
[2020-08-18 06:29] LABS: EOSINOPHILS % 2.9 % (0.0-5.0); HEMATOCRIT. 29.8 % (42.0-52.0); LYMPHOCYTES % 22.4 % (20.0-50.0); MEAN CORPUSCULAR HEMOGLOBIN 28.7 pg (28.0-32.0); MEAN CORPUSCULAR VOLUME 85.9 fL (80.0-94.0); MEAN PLATELET VOLUME 7.7 fl (7.4-10.4); NEUTROPHILS % 65.7 % (40.0-76.0); PLATELET 311 x1000/uL (130-400); RED BLOOD CELL COUNT 3.47 mill/uL (4.7-6.1); RED CELL DISTRIBUTION WIDTH 17.8 % (11.6-14.6)
[2020-08-18] MEDS: BLOOD SUGAR DIAGNOSTIC STRIP TEST SCH ×4 (07:20→21:57)
[2020-08-18] MEDS: INSULIN LISPRO 100 UNITS/ML SUBCUT SCH ×4 (07:50→21:57)
[2020-08-18] MEDS: ZINC SULFATE 220 MG ( 50 ) CAPSULE PO SCH (09:00)
[2020-08-18] MEDS: SEVELAMER CARBONATE 800 MG TABLET PO SCH ×3 (10:17→18:02)
[2020-08-18] MEDS: ASCORBIC ACID 500 MG TABLET PO SCH ×2 (10:18→21:45)
[2020-08-18] MEDS: MAGNESIUM OXIDE 400MG TABLET PO SCH ×2 (10:18→21:44)
[2020-08-18] MEDS: CHOLECALCIFEROL (D3) 1000 UNIT TABLET PO SCH (10:18)
[2020-08-18] MEDS: GUAIFENESIN/DM 600MG/30MG ER TAB 12HR PO SCH ×2 (10:19→21:44)
[2020-08-18] MEDS: AMLODIPINE 10MG TABLET PO SCH (10:20)
[2020-08-18 19:57] VITALS: BP 130/79
[2020-08-18 20:00] VITALS: BP_SYST 153; BP_SYST 157; BP_DIAS 78; BP_DIAS 88
[2020-08-18] MEDS: FAMOTIDINE 20MG TABLET PO SCH (21:44)
[2020-08-18] MEDS: ENOXAPARIN 30MG/0.3ML SYR SUBCUT SCH (21:45)
[2020-08-18] MEDS: INSULIN GLARGINE UD 100 UNITS/ML SYR SUBCUT SCH (21:49)
[2020-08-19 01:06] VITALS: BP 137/63
[2020-08-19 04:00] VITALS: BP 146/80
[2020-08-19] MEDS: BLOOD SUGAR DIAGNOSTIC STRIP TEST SCH ×4 (06:17→21:00)
[2020-08-19 06:58] LABS: BASOPHILS % 1.8 % (0.0-2.0); EOSINOPHILS % 3.1 % (0.0-5.0); HEMATOCRIT. 32.8 % (42.0-52.0); HEMOGLOBIN. 10.7 g/dL (14.0-18.0); LYMPHOCYTES % 28.9 % (20.0-50.0); MEAN CORPUSCULAR HEMOGLOBIN 28.1 pg (28.0-32.0); MEAN CORPUSCULAR VOLUME 85.8 fL (80.0-94.0); MEAN PLATELET VOLUME 7.7 fl (7.4-10.4); MONOCYTES % 10.2 % (2.0-8.0); PLATELET 313 x1000/uL (130-400); RED BLOOD CELL COUNT 3.83 mill/uL (4.7-6.1); RED CELL DISTRIBUTION WIDTH 17.8 % (11.6-14.6)
[2020-08-19 07:21] LABS: PHOSPHORUS 4.5 mg/dL (2.5-4.9)
[2020-08-19] MEDS: INSULIN LISPRO 100 UNITS/ML SUBCUT SCH ×4 (07:36→22:50)
[2020-08-19 08:00] VITALS: BP 149/84
[2020-08-19] MEDS: CHOLECALCIFEROL (D3) 1000 UNIT TABLET PO SCH (08:51)
[2020-08-19] MEDS: SEVELAMER CARBONATE 800 MG TABLET PO SCH ×3 (08:51→18:07)
[2020-08-19] MEDS: GUAIFENESIN/DM 600MG/30MG ER TAB 12HR PO SCH ×2 (08:51→22:37)
[2020-08-19] MEDS: AMLODIPINE 10MG TABLET PO SCH (08:51)
[2020-08-19] MEDS: ZINC SULFATE 220 MG ( 50 ) CAPSULE PO SCH (08:52)
[2020-08-19] MEDS: MAGNESIUM OXIDE 400MG TABLET PO SCH ×2 (08:52→22:37)
[2020-08-19] MEDS: ASCORBIC ACID 500 MG TABLET PO SCH ×2 (08:52→22:37)
[2020-08-19 20:00] VITALS: BP 131/81
[2020-08-19] MEDS: FAMOTIDINE 20MG TABLET PO SCH (22:37)
[2020-08-19] MEDS: ENOXAPARIN 30MG/0.3ML SYR SUBCUT SCH (22:50)
[2020-08-19] MEDS: INSULIN GLARGINE UD 100 UNITS/ML SYR SUBCUT SCH (22:51)
[2020-08-20] VITALS: BP 131/71
[2020-08-20 04:00] VITALS: BP 146/80
[2020-08-20] MEDS: BLOOD SUGAR DIAGNOSTIC STRIP TEST SCH ×4 (06:46→21:00)
[2020-08-20] MEDS: INSULIN LISPRO 100 UNITS/ML SUBCUT SCH ×4 (06:56→22:16)
[2020-08-20 07:32] LABS: EOSINOPHILS % 3.2 % (0.0-5.0); HEMATOCRIT. 30.6 % (42.0-52.0); HEMOGLOBIN. 10.2 g/dL (14.0-18.0); LYMPHOCYTES % 35.1 % (20.0-50.0); MEAN CORPUSCULAR HEMOGLOBIN 28.7 pg (28.0-32.0); MEAN CORPUSCULAR VOLUME 85.8 fL (80.0-94.0); MEAN PLATELET VOLUME 7.6 fl (7.4-10.4); MONOCYTES % 8.9 % (2.0-8.0); NEUTROPHILS % 51.8 % (40.0-76.0); PLATELET 281 x1000/uL (130-400); RED BLOOD CELL COUNT 3.56 mill/uL (4.7-6.1); RED CELL DISTRIBUTION WIDTH 17.9 % (11.6-14.6)
[2020-08-20 08:00] VITALS: BP 140/79
[2020-08-20] MEDS: ZINC SULFATE 220 MG ( 50 ) CAPSULE PO SCH (09:25)
[2020-08-20] MEDS: AMLODIPINE 10MG TABLET PO SCH (09:25)
[2020-08-20] MEDS: CHOLECALCIFEROL (D3) 1000 UNIT TABLET PO SCH (09:25)
[2020-08-20] MEDS: MAGNESIUM OXIDE 400MG TABLET PO SCH ×2 (09:26→22:09)
[2020-08-20] MEDS: SEVELAMER CARBONATE 800 MG TABLET PO SCH ×3 (09:26→18:24)
[2020-08-20] MEDS: GUAIFENESIN/DM 600MG/30MG ER TAB 12HR PO SCH ×2 (09:26→22:10)
[2020-08-20] MEDS: ASCORBIC ACID 500 MG TABLET PO SCH ×2 (09:26→22:09)
[2020-08-20 12:00] VITALS: BP 129/79
[2020-08-20 16:00] VITALS: BP 131/76
[2020-08-20 20:00] VITALS: BP 145/79
[2020-08-20] MEDS: ENOXAPARIN 30MG/0.3ML SYR SUBCUT SCH (22:09)
[2020-08-20] MEDS: FAMOTIDINE 20MG TABLET PO SCH (22:09)
[2020-08-20] MEDS: INSULIN GLARGINE UD 100 UNITS/ML SYR SUBCUT SCH (22:16)
[2020-08-21] VITALS: BP 151/86
[2020-08-21 04:00] VITALS: BP 153/80
[2020-08-21] MEDS: BLOOD SUGAR DIAGNOSTIC STRIP TEST SCH ×4 (06:50→20:50)
[2020-08-21 08:00] VITALS: BP 108/75
[2020-08-21] MEDS: AMLODIPINE 10MG TABLET PO SCH (09:00)
[2020-08-21] MEDS: GUAIFENESIN/DM 600MG/30MG ER TAB 12HR PO SCH ×2 (09:42→20:49)
[2020-08-21] MEDS: ZINC SULFATE 220 MG ( 50 ) CAPSULE PO SCH (09:42)
[2020-08-21] MEDS: MAGNESIUM OXIDE 400MG TABLET PO SCH ×2 (09:43→20:49)
[2020-08-21] MEDS: SEVELAMER CARBONATE 800 MG TABLET PO SCH ×3 (09:43→17:11)
[2020-08-21] MEDS: CHOLECALCIFEROL (D3) 1000 UNIT TABLET PO SCH (09:43)
[2020-08-21] MEDS: ASCORBIC ACID 500 MG TABLET PO SCH ×2 (09:43→20:49)
[2020-08-21] MEDS: INSULIN LISPRO 100 UNITS/ML SUBCUT SCH ×4 (10:24→20:53)
[2020-08-21 12:00] VITALS: BP 158/89
[2020-08-21] MEDS ORDERED: SENN-257 MT (15:12)
[2020-08-21] MEDS ORDERED: LANS30CA55 MT (15:12)
[2020-08-21] MEDS ORDERED: HYDR50TA MT (15:12)
[2020-08-21] MEDS ORDERED: METO-539 MT (15:12)
[2020-08-21] MEDS ORDERED: CARV12.545 MT (15:12)
[2020-08-21] MEDS ORDERED: HYDR12.54 PO (15:12)
[2020-08-21] MEDS ORDERED: METO-293 PO (15:12)
[2020-08-21] MEDS ORDERED: HYDR-4135 PO (15:12)
[2020-08-21] MEDS ORDERED: TAMS-11 MT (15:12)
[2020-08-21] MEDS ORDERED: AMLO10TA80 MT (15:12)
[2020-08-21] MEDS ORDERED: *PATIENT'S OWN MEDICATION STORAGE XX SCH (15:30)
[2020-08-21 16:00] VITALS: BP 159/85
[2020-08-21 20:00] VITALS: BP 164/76
[2020-08-21] MEDS: FAMOTIDINE 20MG TABLET PO SCH (20:50)
[2020-08-21] MEDS: CLONIDINE 0.1MG TABLET PO PRN (20:50)
[2020-08-21] MEDS: ENOXAPARIN 30MG/0.3ML SYR SUBCUT SCH (20:54)
[2020-08-21] MEDS: INSULIN GLARGINE UD 100 UNITS/ML SYR SUBCUT SCH (21:50)
[2020-08-22] VITALS: BP 152/81
[2020-08-22 04:00] VITALS: BP 127/73
[2020-08-22 05:53] LABS: PHOSPHORUS 4.9 mg/dL (2.5-4.9)
[2020-08-22 06:26] LABS: BASOPHILS % 1.3 % (0.0-2.0); EOSINOPHILS % 3.2 % (0.0-5.0); HEMATOCRIT. 29.8 % (42.0-52.0); LYMPHOCYTES % 29.6 % (20.0-50.0); MEAN CORPUSCULAR HEMOGLOBIN 28.9 pg (28.0-32.0); MEAN PLATELET VOLUME 7.9 fl (7.4-10.4); MONOCYTES % 8.4 % (2.0-8.0); NEUTROPHILS % 57.5 % (40.0-76.0); PLATELET 300 x1000/uL (130-400); RED BLOOD CELL COUNT 3.47 mill/uL (4.7-6.1); RED CELL DISTRIBUTION WIDTH 17.4 % (11.6-14.6)
[2020-08-22] MEDS: INSULIN LISPRO 100 UNITS/ML SUBCUT SCH (07:45)
[2020-08-22] MEDS: BLOOD SUGAR DIAGNOSTIC STRIP TEST SCH (07:53)
[2020-08-22 08:00] VITALS: BP 125/69
[2020-08-22] MEDS: GUAIFENESIN/DM 600MG/30MG ER TAB 12HR PO SCH (09:22)
[2020-08-22] MEDS: SEVELAMER CARBONATE 800 MG TABLET PO SCH (09:22)
[2020-08-22] MEDS: ASCORBIC ACID 500 MG TABLET PO SCH (09:23)
[2020-08-22] MEDS: CHOLECALCIFEROL (D3) 1000 UNIT TABLET PO SCH (09:23)
[2020-08-22] MEDS: ZINC SULFATE 220 MG ( 50 ) CAPSULE PO SCH (09:23)
[2020-08-22] MEDS: AMLODIPINE 10MG TABLET PO SCH (09:24)
[2020-08-22] MEDS: MAGNESIUM OXIDE 400MG TABLET PO SCH (09:24)
[2020-08-22 10:28] VITALS: BP 125/69
== END 2020-08-22 11:15 | disposition home or self-care (01) | DRG 133 ==
LOC: ER 15:22 → EDSEX 15:22 → MICUSO 18:17 → EDBEDREQ 18:37 → EDBEDREQTM 18:37 → EDBEDREQ 21:58 → 7WST 08-02 02:20 → 5WST 08-04 08:22 → UNDODISIN 08-08 22:09 → 6EST 08-10 12:32
PROVIDERS: ADMIT Internal Medicine; ATTEND Internal Medicine
PROC: 5A1D70Z Performance of Urinary Filtration, Intermittent, Less than 6 Hours Per Day (ICD-10-PCS; principal; 2020-08-03)
PROC: 5A1D70Z Performance of Urinary Filtration, Intermittent, Less than 6 Hours Per Day (ICD-10-PCS; 2020-08-05)
PROC: 5A1D70Z Performance of Urinary Filtration, Intermittent, Less than 6 Hours Per Day (ICD-10-PCS; 2020-08-08)
PROC: 5A1D70Z Performance of Urinary Filtration, Intermittent, Less than 6 Hours Per Day (ICD-10-PCS; 2020-08-11)
PROC: 5A1D70Z Performance of Urinary Filtration, Intermittent, Less than 6 Hours Per Day (ICD-10-PCS; 2020-08-13)
PROC: 5A1D70Z Performance of Urinary Filtration, Intermittent, Less than 6 Hours Per Day (ICD-10-PCS; 2020-08-17)
PROC: 5A1D70Z Performance of Urinary Filtration, Intermittent, Less than 6 Hours Per Day (ICD-10-PCS; 2020-08-19)
PROC: 5A1D70Z Performance of Urinary Filtration, Intermittent, Less than 6 Hours Per Day (ICD-10-PCS; 2020-08-22)
DX: J96.00 Acute respiratory failure, unspecified whether with hypoxia or hypercapnia (principal); J18.9 Pneumonia, unspecified organism; E11.00 Type 2 diabetes mellitus with hyperosmolarity without nonketotic hyperglycemic-hyperosmolar coma (NKHHC); I13.2 Hypertensive heart and chronic kidney disease with heart failure and with stage 5 chronic kidney disease, or end stage renal disease; E43 Unspecified severe protein-calorie malnutrition; N18.6 End stage renal disease; Z86.16 Personal history of COVID-19; I48.91 Unspecified atrial fibrillation; E83.51 Hypocalcemia; E11.65 Type 2 diabetes mellitus with hyperglycemia; E11.22 Type 2 diabetes mellitus with diabetic chronic kidney disease; D64.9 Anemia, unspecified; M54.9 Dorsalgia, unspecified; E83.42 Hypomagnesemia; Z20.822 Contact with and (suspected) exposure to COVID-19; I50.30 Unspecified diastolic (congestive) heart failure; Z99.2 Dependence on renal dialysis; Z90.49 Acquired absence of other specified parts of digestive tract; Z87.11 Personal history of peptic ulcer disease; Z86.73 Personal history of transient ischemic attack (TIA), and cerebral infarction without residual deficits; Z59.0 Homelessness; Z88.8 Allergy status to other drugs, medicaments and biological substances; Z68.23 Body mass index [BMI] 23.0-23.9, adult; Z82.49 Family history of ischemic heart disease and other diseases of the circulatory system; Z83.3 Family history of diabetes mellitus; Z91.14 Patient's other noncompliance with medication regimen; Z91.15 Patient's noncompliance with renal dialysis
CPT/HCPCS: 36415; 71045; 76770; 80048; 80053; 80061; 80305; 81003; 82010; 82550; 82553; 82607; 82746; 82962; 83036; 83540; 83550; 83615; 83735; 83880; 84100; 84145; 84153; 84484; 85025; 85379; 86705; 86706; 86803; 87340; 87426; 87635; 90585; 90686; 90732; 93005; 93970; 96365; 97116; 97162; 97166; 99285; J0456; J0696; J0885; J1650; J1815; J7060; A4315; G0103